=== PATIENT | female | born 1995 | race Caucasian/White ===

== ENCOUNTER 2018-02-21 13:08 | Emergency (ER) | payer SELFPAY ==
[~2018-02-21] VITALS: Ht 154.9 cm; Wt 63.0 kg
[2018-02-21 13:21] VITALS: Ht 154.9 cm; Wt 63.0 kg
[2018-02-21 14:52] VITALS: BP 136/78
== END 2018-02-21 15:59 | disposition home or self-care (01) ==
LOC: ED 13:08
DX: M54.12 Radiculopathy, cervical region (principal)